=== PATIENT | female | born 1955 | race Caucasian/White ===

== ENCOUNTER → 2018-12-24 15:47 | Outpatient (CLI) | payer OTHER, SELFPAY ==
--- NOTE | 2018-12-24 | DI.MG.S_ITS ---
BILATERAL DIGITAL SCREENING MAMMOGRAM 3D/2D WITH CAD: 12/24/2018 CLINICAL: Routine screening. Family history of breast cancer. Comparison is made to exams dated: 07/24/2016 mammogram, 05/25/2014 mammogram, and 09/19/2011 mammogram - [facility]. The tissue of both breasts is predominantly fatty. Current study was also evaluated with a Computer Aided Detection (CAD) system. There is a benign intramammary node in the right breast. There is a mole marker on the left breast. No significant masses, calcifications, or other findings are seen in either breast. There has been no significant interval change. IMPRESSION: There is no mammographic evidence of malignancy. A 1 year screening mammogram is recommended. This exam was interpreted at Station ID: [id number]. NOTE: For mammograms, a report in lay terms will be sent to the patient. Approximately 15% of breast malignancies will not be visualized mammographically. In the management of a palpable breast mass, a negative mammogram must not discourage biopsy of a clinically suspicious lesion. Electronically Signed By: Johnson valdivia/jean claude:12/24/2018 18:20:28 letter sent: Normal Exam ACR BI-RADS Category 2: Benign Finding(s) 3342F
== END ==
PROVIDERS: PCP Physician Assistant; Visit Provider Physician Assistant
DX: Z12.31 Encounter for screening mammogram for malignant neoplasm of breast (principal); Z80.3 Family history of malignant neoplasm of breast
CPT/HCPCS: 77063; 77067

== ENCOUNTER 2019-02-01 15:45 | Emergency (ER) | payer OTHER, SELFPAY ==
[2019-02-01 15:47] VITALS: BP 146/84; PULSE 85; RESP 20; TEMP 36.9; O2SAT 97
[2019-02-01 15:54] VITALS: BP 146/84; PULSE 85; RESP 20; TEMP 36.9; O2SAT 97
--- NOTE | 2019-02-01 16:20 | ED_ITS ---
HPI - Female Genitourinary <ALEX Davidson - Last Filed: 02/01/19 17:22> General Chief complaint: Urogenital-Female Stated complaint: States bladder infection Time Seen by Provider: 02/01/19 16:11 Source: patient Mode of arrival: ambulatory Limitations: no limitations History of Present Illness HPI Narrative: says she is going to bathroom more often, kidd, stings and feels exactly like past bladder infections, started last night MD Complaint: dysuria and UTI Onset (ago): day(s) Severity: similar to previous episodes Quality: Burning Relieving factors: none Exacerbating factors: urination Urinary symptoms: Difficulty Urinating, Dysuria, Flank Pain (R side), Foul Smelling Urine, Frequency and Urgency Vaginal discharge: other (none) Related Data Home Medications Medication Instructions Recorded Confirmed VITAMIN B COMPLEX (Balanced B-50) 1 tab PO Q DAY #0 07/17/12 07/09/18 ASPIRIN (Aspir-Low) 81 mg PO Q DAY #0 09/02/12 07/09/18 [OTC SINUS MEDS] #0 09/02/12 07/09/18 Previous Rx's Medication Instructions Recorded EPINEPHRINE (#EPI EZ PEN JR) 0.5 mg IM SEE INSTRUCTIONS #2 09/01/12 tramadol 50 mg PO BIDP #120 09/01/12 Propranolol HCl 40 mg PO BID #60 03/04/13 albuterol sulfate [Proventil HFA] 2 puff INH Q4HP #1 inh 03/04/13 cyclobenzaprine 10 mg PO HS #30 03/04/13 lisinopril 10 mg PO QDAY #30 03/04/13 topiramate [Topamax] 25 mg PO BID #60 tab 04/08/17 buspirone 15 mg tablet 15 mg PO DAILY #30 tab 09/29/18 citalopram 20 mg tablet 20 mg PO QDAY #30 tab 09/29/18 lamotrigine 200 mg tablet 200 mg PO DAILY #30 tab 12/08/18 lithium carbonate 300 mg capsule 300 mg PO HS #30 cap 12/08/18 gabapentin 100 mg capsule 100 mg PO TIDP PRN #30 cap 12/25/18 sulfamethoxazole-trimethoprim 1 tab PO BID #20 tab 02/01/19 [Bactrim DS] Allergies Allergy/AdvReac Type Severity Reaction Status Date / Time venom-honey bee Allergy Severe SWELLING,HI Verified 02/01/19 17:26 [bee venom (honey bee)] VES,ANAPHYL AXIS codeine Allergy Mild NAUSEA AND Verified 02/01/19 17:26 VOMITING Review of Systems <ALEX Davidson - Last Filed: 02/01/19 17:22> Constitutional Reports as per HPI and Reports system reviewed and no additional complaints, except as docu Cardiovascular Denies chest pain and Denies dyspnea Respiratory Denies dyspnea Gastrointestinal Gastrointestinal: Reports as per HPI, Reports abdominal pain, Denies melena, Denies hematochezia, Denies constipation, Denies diarrhea and Denies vomiting Genitourinary Reports as per HPI, Denies abnormal vaginal bleeding, Denies hematuria, Reports urinary frequency, Reports dysuria, Denies pelvic pain, Reports flank pain, Reports urinary urgency and Denies vaginal discharge Musculoskeletal Denies back pain PFSH <ALEX Davidson - Last Filed: 02/01/19 17:22> Social History Smoking Status: Never smoker Social History Smoking Status: Never smoker Exam <ALEX Davidson - Last Filed: 02/01/19 17:22> Initial Vital Signs Initial Vital Signs: Vital Signs Temperature 98.4 F 02/01/19 15:47 Pulse Rate 85 02/01/19 15:47 Respiratory Rate 20 02/01/19 15:47 Blood Pressure 146/84 H 02/01/19 15:47 Pulse Oximetry 97 02/01/19 15:47 Const General: cooperative, healthy appearing, comfortable, well developed and well groomed Nutritional Appearance: average body habitus and obese morbidly obese Orientation: alert, awake and oriented x3 [facility] Head: normal to inspection and normocephalic Ears: hearing grossly normal bilaterally, external ears normal, TM's normal bilaterally and mastoids normal Nose: external nose normal and nares normal Face and sinus: normal facial exam, sinuses nontender and face symmetric Mouth: oral mucosae normal, lip normal, tongue normal, oropharynx normal and moist mucous membranes Teeth and gingiva: dentition normal and gingiva normal Throat: posterior oropharynx normal, tonsils normal and uvula midline Eyes General: appearance normal, both eyes and all related structures Visual Turpin: normal visual turpin by confrontation Eyelids: eyelids normal Conjunctivae: conjunctivae normal Sclera: sclerae normal Pupils: PERRL EOM: EOM intact bilaterally Neck Neck: normal visual inspection, full ROM, no meningeal signs, trachea midline, supple and No lymphadenopathy Chest Chest: normal inspection of the chest Resp Effort & Inspection: normal respiratory effort and able to speak in complete sentences Auscultation: clear to auscultation bilaterally Cardio Rate: regular rate Rhythm: regular rhythm Heart Sounds: S1 normal and S2 normal GI Inspection: normal to inspection and obesity Palpation: soft Other: no flank tenderness Back/Spine/Pelvis Cervical Spine: cervical ROM normal Thoracic/Lumbar Spine: thoraco-lumbar ROM normal Skin General: no rashes or lesions noted, elasticity normal, turgor normal and dry skin Neuro General: alert, awake, oriented x3 and meningeal signs present Cognition: normal cognition Speech: speech normal Gait: normal gait Motor: muscle tone normal throughout Sensory Exam: no sensory deficits noted Extrem General: normal to inspection and full ROM Psych Appearance: grossly normal and well kempt Mental Status: mental status grossly normal Speech and Movement: speech and movement normal Mood: congruent mood Affect: normal affect Attitude: cooperative Thought Process: normal Thought Content: normal Judgment: judgment good <Анна Sawant DO - Last Filed: 02/02/19 07:49> Initial Vital Signs Initial Vital Signs: Vital Signs Temperature 98.4 F 02/01/19 15:47 Pulse Rate 85 02/01/19 15:47 Respiratory Rate 20 02/01/19 15:47 Blood Pressure 146/84 H 02/01/19 15:47 Pulse Oximetry 97 02/01/19 15:47 Course <ALEX Davidson - Last Filed: 02/01/19 17:22> Course Narrative: 1720 ua results and dc plan discussed, agreed to give first dose of abx here Orders Ordered: Discontinued Medications Trimethoprim/Sulfamethoxazole (Bactrim Ds) 1 tab PO NOW ONE Stop: 02/01/19 17:21 Last Admin: 02/01/19 17:26 Dose: 1 tab Vital Signs - 8 hr 02/01/19 15:47 02/01/19 15:54 Temperature 98.4 F 98.4 F Pulse Rate 85 85 Respiratory Rate 20 20 Blood Pressure 146/84 H 146/84 H Pulse Oximetry 97 97 <Анна Sawant DO - Last Filed: 02/02/19 07:49> Orders Ordered: Discontinued Medications Trimethoprim/Sulfamethoxazole (Bactrim Ds) 1 tab PO NOW ONE Stop: 02/01/19 17:21 Last Admin: 02/01/19 17:26 Dose: 1 tab Vital Signs - 8 hr 02/01/19 15:47 02/01/19 15:54 Temperature 98.4 F 98.4 F Pulse Rate 85 85 Respiratory Rate 20 20 Blood Pressure 146/84 H 146/84 H Pulse Oximetry 97 97 MDM - Female Genitourinary <ALEX Davidson - Last Filed: 02/01/19 17:22> Differential Diagnosis Likely urinary tract infection and other (pyelonephritis, urosepsis, cystitis, kidney stone) Lab Data Attestation: I reviewed the patient's lab results. Lab Results 02/01/19 Range/Units 16:25 Urine Color [place] Urine Appearance Sl cloudy Urine pH 5.0 (4.5-8.0) Ur Specific [place] >=1.030 H (1.000-1.035) Urine Protein 2+ H (Negative) Urine Glucose (UA) Trace H (Negative) g/dL Urine Ketones Negative (NEGATIVE) Urine Occult Blood 3+ H (Negative) Urine Nitrate Positive H (Negative) Urine Bilirubin Negative (NEGATIVE) Urine Urobilinogen 2.0 H (0.2) E.U./dL Ur Leukocyte Esterase 1+ H (NEGATIVE) Urine RBC 5-10/hpf H (0-5/HPF) Urine WBC 30-100/hpf H (0-5/HPF) Ur Squamous Epith Cells 1-5 /hpf (0-5/HPF) Calcium Oxalate Crystal Many H Amorphous Sediment 2+ Urine Bacteria Few (2-10) H (None) Ur Culture Indicated? Specimen cultured <Анна Sawant DO - Last Filed: 02/02/19 07:49> Lab Data Lab Results 02/01/19 Range/Units 16:25 Urine Color [place] Urine Appearance Sl cloudy Urine pH 5.0 (4.5-8.0) Ur Specific [place] >=1.030 H (1.000-1.035) Urine Protein 2+ H (Negative) Urine Glucose (UA) Trace H (Negative) g/dL Urine Ketones Negative (NEGATIVE) Urine Occult Blood 3+ H (Negative) Urine Nitrate Positive H (Negative) Urine Bilirubin Negative (NEGATIVE) Urine Urobilinogen 2.0 H (0.2) E.U./dL Ur Leukocyte Esterase 1+ H (NEGATIVE) Urine RBC 5-10/hpf H (0-5/HPF) Urine WBC 30-100/hpf H (0-5/HPF) Ur Squamous Epith Cells 1-5 /hpf (0-5/HPF) Calcium Oxalate Crystal Many H Amorphous Sediment 2+ Urine Bacteria Few (2-10) H (None) Ur Culture Indicated? Specimen cultured Discharge Plan Departure Patient Disposition: Home Clinical Impression: Urinary tract infection Discharge Date/Time: 02/01/19 17:43 Interventions: ED Discharge Assessment Last Done: 02/01/19 17:42 Instructions: DI for Urinary Tract Infection (UTI) Prescriptions: New sulfamethoxazole-trimethoprim [Bactrim DS] 800-160 mg tablet 1 tab PO BID Qty: 20 RF: 0 No Action VITAMIN B COMPLEX (Balanced B-50) 1 tab PO Q DAY Qty: 0 RF: 0 tramadol 50 MG tablet 50 mg PO BIDP Qty: 120 RF: 5 EPINEPHRINE (#EPI EZ PEN JR) 0.5 mg IM SEE INSTRUCTIONS Qty: 2 RF: 5 ASPIRIN (Aspir-Low) 81 mg PO Q DAY Qty: 0 RF: 0 [OTC SINUS MEDS] Qty: 0 RF: 0 cyclobenzaprine 10 MG tablet 10 mg PO HS Qty: 30 RF: 3 lisinopril 5 MG tablet 10 mg PO QDAY Qty: 30 RF: 3 albuterol sulfate [Proventil HFA] 90 MCG/PUFF HFA aerosol inhaler 2 puff INH Q4HP Qty: 1 RF: 3 Propranolol HCl 40 mg PO BID Qty: 60 RF: 3 topiramate [Topamax] 25 MG tablet 25 mg PO BID Qty: 60 RF: 1 buspirone 15 mg tablet 15 mg PO DAILY Qty: 30 RF: 3 citalopram 20 mg tablet 20 mg PO QDAY Qty: 30 RF: 3 lamotrigine 200 mg tablet 200 mg PO DAILY Qty: 30 RF: 1 lithium carbonate 300 mg capsule 300 mg PO HS Qty: 30 RF: 1 gabapentin 100 mg capsule 100 mg PO TIDP PRN (Reason: anxiety) Qty: 30 RF: 0 Referrals: Desch,Laura, PA-C [Primary Care Provider] - (follow up recommended in approx 3 days for recheck of urine ) <Анна Sawant DO - Last Filed: 02/02/19 07:49> Cosign ED Attending Cosignature Attestation: I was immediately available in the department for consultation. This documentation has been reviewed and I agree with assessment and treatment. Supervised by Анна Sawant DO
[2019-02-01 16:52] LABS: Appearance Urine UA SL CLOUDY; Bilirubin Urine UA NEGATIVE (NEGATIVE); Color Urine UA ORANGE; Glucose Urine UA TRACE g/dL (Negative); Ketones Urine UA NEGATIVE (NEGATIVE); Leukocyte Esterase Urine UA 1+ (NEGATIVE); Nitrite Urine UA POSITIVE (Negative); Occult Blood Urine UA 3+ (Negative); Protein Urine UA 2+ (Negative); Specific Gravity Urine UA >=1.030 (1.000-1.035)
[2019-02-01 17:10] LABS: Amorphous Sediment Urine 2+; Bacteria Urine Few (2-10); Calcium Oxalate Crystals Urine Many; Culture Indicated Urine Specimen Cultured; RBC Urine 5-10/HPF (0-5/HPF); Squamous Epithelial Cell Urine 1-5 /HPF (0-5/HPF); WBC Urine 30-100/HPF (0-5/HPF)
[2019-02-01] MEDS: TRIMETH/SULFA 160/800 (DS) TABLET 1 TAB PO (17:26)
[2019-02-01 17:42] VITALS: BP 136/74; PULSE 80; RESP 24; O2SAT 100
== END 2019-02-01 17:43 | disposition home or self-care (01) ==
PROVIDERS: Emergency Provider Nurse Practitioner; PCP Physician Assistant
DX: N39.0 Urinary tract infection, site not specified (principal)
CPT/HCPCS: 81001; 87077; 87086; 87186; 99282; 99283

== ENCOUNTER → 2020-05-30 11:10 | Outpatient (CLI) | payer OTHER, SELFPAY ==
--- NOTE | 2020-05-30 | DI.RAD.S_ITS ---
PROCEDURE: XR KNEE LT 1TO2V INDICATIONS: KNEE PAIN TECHNIQUE: Two views of the knee were acquired. COMPARISON: None. FINDINGS: Bones: No fractures or dislocations. Mild medial and lateral compartment joint space loss and moderate lateral compartment marginal spur formation. Trace lateral subluxation at the tibial femoral joint. No suspicious bony lesions. Soft tissues: Small joint effusion. No suspicious soft tissue calcifications. IMPRESSION: Mild tricompartment osteoarthritic changes. Dictated by: Brandi Welch M.D. on 05/30/2020 at 13:56 Approved by: Brandi Welch M.D. on 05/30/2020 at 13:57
--- NOTE | 2020-05-30 | DI.RAD.S_ITS ---
PROCEDURE: XR KNEE RT 1TO2V INDICATIONS: KNEE PAIN TECHNIQUE: Two views of the knee were acquired. COMPARISON: None. FINDINGS: Bones: No fractures or dislocations. There is decreased joint space loss in the tibial femoral compartments and lateral subluxation at the tibiofemoral joint. There are moderate tricompartment marginal spurs present. No suspicious bony lesions. Soft tissues: Questionable small joint effusion. No suspicious soft tissue calcifications. IMPRESSION: Moderate tricompartment osteoarthritic changes. Dictated by: Brandi Welch M.D. on 05/30/2020 at 13:55 Approved by: Brandi Welch M.D. on 05/30/2020 at 13:56
== END ==
PROVIDERS: PCP Physician Assistant; Referring Provider Physician Assistant; Visit Provider Physician Assistant
DX: M25.561 Pain in right knee (principal); M25.562 Pain in left knee; R73.03 Prediabetes; E66.01 Morbid (severe) obesity due to excess calories; I10 Essential (primary) hypertension; E78.2 Mixed hyperlipidemia
CPT/HCPCS: 73560; 80053; 80061; 83036; 85025

== ENCOUNTER → 2020-05-30 21:37 | Outpatient (ROUT) | payer OTHER, SELFPAY ==
[2020-05-30 21:55] LABS: Add Manual Diff / Slide Review NO; Basophils Absolute Auto 100 /uL (0-100); Basophils Percent Auto 1.5 % (0-2); Eosinophils Absolute Auto 200 /uL (0-450); Hematocrit 37.5 % (36-46); Lymphocytes Absolute Auto 1100 /uL (1100-4500); Lymphocytes Percent Auto 19.2 % (25-40); Mean Corpuscular HGB Conc 32.1 % (30-36); Mean Corpuscular Volume 90.3 fL (80-100); Monocytes Absolute Auto 700 /uL (0-900); Monocytes Percent Auto 11.9 % (3-14); Neutrophils Absolute Auto 3700 /uL (1500-7000); Neutrophils Percent Auto 63.4 % (50-75); Platelet Count 306 X10^3/uL (150-400); Red Blood Cell Count 4.15 X10^6/uL (4.0-5.2); Red Cell Distribution Width 14.3 % (11.6-14.8); White Blood Cell Count 5.8 X10^3/uL (4.5-11.0)
[2020-05-30 22:31] LABS: Alanine Aminotransferase 20 IU/L (<35); Albumin 3.4 g/dL (3.5-5.0); Albumin Globulin Ratio 1.2 (1.0-2.8); Alkaline Phosphatase 102 U/L (38-126); Aspartate Aminotransferase 35 IU/L (14-36); BUN Creatinine Ratio 27.7 (6-22); Bilirubin Total 0.6 mg/dL (0.2-1.3); Blood Urea Nitrogen 18 mg/dL (7-17); Calcium 8.9 mg/dL (8.4-10.2); Carbon Dioxide 27 mmol/L (22-32); Chloride 108 mmol/L (98-107); Cholesterol 171 mg/dL (140-199); Estimated Glomerular Filt Rate > 60.0 mL/min (>60); Globulin 2.8 g/dL (1.7-4.1); Glucose 93 mg/dL (80-110); HDL Cholesterol 51 mg/dL (40-60); HEMOLYSIS 17 (0-50); LDL Cholesterol Calculated 98 mg/dL (<100); Potassium 4.4 mmol/L (3.4-5.1); Sodium 139 mmol/L (137-145); Total Protein 6.2 g/dL (6.3-8.2); Triglycerides 109 mg/dL (35-150)
[2020-05-30 23:06] LABS: Hemoglobin A1C% w Est Avg Glu 5.6 % (4.0-6.0)
== END ==
PROVIDERS: PCP Physician Assistant; Visit Provider Physician Assistant
DX: I10 Essential (primary) hypertension (principal); E66.01 Morbid (severe) obesity due to excess calories; E78.2 Mixed hyperlipidemia; R73.03 Prediabetes
CPT/HCPCS: 80053; 80061; 83036; 85025

== ENCOUNTER → 2020-09-26 11:08 | Outpatient (CLI) | payer OTHER, SELFPAY ==
--- NOTE | 2020-09-26 | DI.MG.S_ITS ---
BILATERAL DIGITAL SCREENING MAMMOGRAM 3D/2D WITH CAD: 09/26/2020 CLINICAL: Routine screening. Family history of breast cancer. Comparison is made to exams dated: 12/24/2018 mammogram - [facility], 07/24/2016 mammogram, and 05/25/2014 mammogram - [facility]. The tissue of both breasts is predominantly fatty. Current study was also evaluated with a Computer Aided Detection (CAD) system. There is a stable benign intramammary node in the right breast. There is a mole marker on the left breast. No significant masses, calcifications, or other findings are seen in either breast. There has been no significant interval change. IMPRESSION: BENIGN There is no mammographic evidence of malignancy. A 1 year screening mammogram is recommended. This exam was interpreted at Station ID: [id number]. NOTE: For mammograms, a report in lay terms will be sent to the patient. Approximately 15% of breast malignancies will not be visualized mammographically. In the management of a palpable breast mass, a negative mammogram must not discourage biopsy of a clinically suspicious lesion. Electronically Signed By: Bernardo Garduno acr/penrad:09/26/2020 12:29:12 letter sent: Normal Exam ACR BI-RADS Category 2: Benign Finding(s) 3342F
== END ==
PROVIDERS: PCP Physician Assistant; Referring Provider Physician Assistant; Visit Provider Physician Assistant
DX: Z12.31 Encounter for screening mammogram for malignant neoplasm of breast (principal); Z80.3 Family history of malignant neoplasm of breast
CPT/HCPCS: 77063; 77067

== ENCOUNTER → 2023-07-02 08:54 | Outpatient (CLI) | payer OTHER, SELFPAY ==
[2023-07-02 11:00] LABS: Alanine Aminotransferase 36 IU/L (<35); Albumin 3.8 g/dL (3.5-5.0); Albumin Globulin Ratio 1.3 (1.0-2.8); Alkaline Phosphatase 107 U/L (38-126); Aspartate Aminotransferase 46 IU/L (14-36); Bilirubin Total 0.6 mg/dL (0.2-1.3); Bilirubin Unconjugated 0.3 mg/dL (0.0-1.1); Globulin 2.9 g/dL (1.7-4.1); HEMOLYSIS < 15 (0-50); Total Protein 6.7 g/dL (6.3-8.2)
[2023-07-04 16:59] LABS: Hep C Virus Ab w/Reflex Quant REACTIVE s/c (NEGATIVE)
[2023-07-06 08:09] LABS: HCV log 10 6.933 (.)
[2023-07-06 19:03] LABS: Hepatitis C Genoype 1a (.)
== END ==
PROVIDERS: PCP Physician Assistant; Referring Provider Internal Medicine Gastroenterology; Visit Provider Internal Medicine Gastroenterology
DX: B18.2 Chronic viral hepatitis C (principal)
CPT/HCPCS: 36415; 80076; 86803; 87522

== ENCOUNTER → 2024-12-12 12:40 | Outpatient (CLI) | payer OTHER, SELFPAY ==
[2024-12-12 13:20] LABS: Add Manual Diff / Slide Review NO; Basophils Absolute Auto 100 /uL (0-100); Basophils Percent Auto 1.1 % (0-2); Eosinophils Absolute Auto 300 /uL (0-450); Eosinophils Percent Auto 5.3 % (2-4); Hematocrit 41.6 % (36-46); Hemoglobin 13.4 g/dL (12.0-16.0); Lymphocytes Absolute Auto 1100 /uL (1100-4500); Mean Corpuscular HGB Conc 32.2 % (30-36); Mean Corpuscular Hemoglobin 29.5 PG (26-34); Mean Corpuscular Volume 91.5 fL (80-100); Monocytes Absolute Auto 800 /uL (0-900); Monocytes Percent Auto 14.1 % (3-14); Neutrophils Absolute Auto 3200 /uL (1500-7000); Neutrophils Percent Auto 59.5 % (50-75); Platelet Count 329 X10^3/uL (150-400); Red Blood Cell Count 4.55 X10^6/uL (4.0-5.2); Red Cell Distribution Width 13.9 % (11.6-14.8); White Blood Cell Count 5.5 X10^3/uL (4.5-11.0)
[2024-12-12 13:34] LABS: Albumin Globulin Ratio 1.4 (1.0-2.8); Alkaline Phosphatase 107 U/L (38-126); BUN Creatinine Ratio 31.9 (6-22); Bilirubin Total 0.4 mg/dL (0.2-1.3); Blood Urea Nitrogen 22 mg/dL (7-17); Calcium 9.4 mg/dL (8.4-10.2); Carbon Dioxide 30 mmol/L (22-32); Chloride 106 mmol/L (98-107); Estimated Glomerular Filt Rate > 60 mL/min (>60); Globulin 2.9 g/dL (1.7-4.1); Glucose 73 mg/dL (80-110); HEMOLYSIS < 15 (0-50); Potassium 4.7 mmol/L (3.4-5.1); Sodium 141 mmol/L (137-145); Total Protein 6.9 g/dL (6.3-8.2)
[2024-12-12 13:35] LABS: Cholesterol 190 mg/dL (140-199); HDL Cholesterol 49 mg/dL (40-60); LDL Cholesterol Calculated 101 mg/dL (<100); Triglycerides 201 mg/dL (35-150)
[2024-12-12 13:36] LABS: Hemoglobin A1C% w Est Avg Glu 5.2 % (4.0-6.0)
[2024-12-12 13:37] LABS: Alanine Aminotransferase 15 IU/L (<35); Aspartate Aminotransferase 28 IU/L (14-36)
[2024-12-12 14:08] LABS: TSH w/ Reflex to FT4 < 0.02 uIU/mL (0.47-4.68)
[2024-12-12 14:13] LABS: Ferritin 27 ng/mL (11-264)
[2024-12-12 14:33] LABS: Vitamin D 25 Hydroxy (D3) 57.8 ng/mL (30.0-100.0)
[2024-12-12 14:34] LABS: Free T4, Direct Thyroxine 1.23 ng/dL (0.78-2.19)
== END ==
PROVIDERS: Physician Assistant; PCP Physician Assistant; Referring Provider Psychiatry & Neurology Psychiatry; Visit Provider Psychiatry & Neurology Psychiatry
DX: E55.9 Vitamin D deficiency, unspecified (principal); R73.09 Other abnormal glucose; E78.2 Mixed hyperlipidemia; G25.81 Restless legs syndrome; F41.1 Generalized anxiety disorder; F33.1 Major depressive disorder, recurrent, moderate
CPT/HCPCS: 36415; 80053; 80061; 82306; 82728; 83036; 84439; 84443; 85025